=== PATIENT | male | born 1955 | race Asian ===

== ENCOUNTER 2024-01-15 21:55 | Emergency (ER) | payer BC ==
[~2024-01-15] VITALS: Ht 167.6 cm; Wt 67.6 kg
[2024-01-15 22:29] VITALS: BP_SYST 171; PULSE 85; RESP 20; TEMP 98; O2SAT 95
[2024-01-15 23:46] LABS: BASOPHILS % (AUTO) 0.2 % (0.0-2.0); HEMATOCRIT 42.2 % (36-54); HEMOGLOBIN 14.3 g/dL (14.0-18.0); LYMPHOCYTES # (AUTO) 0.7 K/uL (1.0-5.5); LYMPHOCYTES % (AUTO) 6.7 % (20.5-51.5); MEAN CORPUSCULAR HEMOGLOBIN 30 pg (27-31); MEAN CORPUSCULAR HGB CONC 34 % (32-36); MEAN CORPUSCULAR VOLUME 90 fL (79.0-98.0); MONOCYTES # (AUTO) 0.6 K/uL (0.0-1.0); MONOCYTES % (AUTO) 5.3 % (1.7-9.3); NEUTROPHILS # (AUTO) 9.3 K/uL (1.8-7.7); NEUTROPHILS % (AUTO) 87.8 % (40.0-70.0); PLATELET COUNT (AUTO) 199 K/uL (130-430); RED BLOOD CELL COUNT(AUTO) 4.71 MIL/uL (4.2-6.2); WHITE BLOOD COUNT (AUTO) 10.6 K/uL (4.8-10.8)
[2024-01-16] MEDS: PANTOPRAZOLE SODIUM 40 MG TAB PO ONE (00:43)
[2024-01-16] MEDS: MAG-AL HYDROX/SIMETH 30 ML UDC PO ONE (00:43)
[2024-01-16] MEDS: amLODIPine BESYLATE 10 MG TABLET PO ONE (00:44)
[2024-01-16 00:52] LABS: ANION GAP 13 (5-15); CALCIUM 9.1 mg/dL (8.4-11.0); CARBON DIOXIDE 27 mmol/L (23-29); CHLORIDE 96 mmol/L (98-107); CREATININE 0.88 mg/dL (0.55-1.30); GFR AFRICAN AMERICAN 110 mL/min (>90); GLUCOSE 152 mg/dL (74-106); POTASSIUM 3.7 mmol/L (3.5-5.1); SODIUM SERUM 136 mmol/L (136-145); UREA NITROGEN, BLOOD 15 mg/dL (8-21)
[2024-01-16 00:58] LABS: ALANINE AMINOTRANSFERASE 22 U/L (12-78); ASPARTATE AMINOTRANSFERASE 17 U/L (10-37); BILIRUBIN,DIRECT 0.2 mg/dL (0.0-0.3); LIPASE 27 U/L (16-77); TOTAL BILIRUBIN 0.6 mg/dL (0.0-1.0); TOTAL PROTEIN, SERUM 8.1 g/dL (6.4-8.3)
[2024-01-16 01:05] LABS: GFR NON AFRICAN-AMERICAN 91 mL/min (>90)
[2024-01-16] MEDS ORDERED: OMEP40CA20 PO (01:24)
[2024-01-16 01:50] VITALS: BP_SYST 177; PULSE 81; RESP 20; TEMP 98.7; O2SAT 95
== END 2024-01-16 01:50 | disposition home or self-care (01) ==
LOC: SED 21:55
DX: K29.70 Gastritis, unspecified, without bleeding (principal); I10 Essential (primary) hypertension; Z79.899 Other long term (current) drug therapy
CPT/HCPCS: 36415; 80048; 80076; 83690; 84484; 85025; 93005; 99284